=== PATIENT | male | born 1990 | race Two or more races ===

== ENCOUNTER 2025-05-23 00:29 | Emergency (ER) | payer OTHER ==
[~2025-05-23] VITALS: Ht 175.3 cm; Wt 74.8 kg
[2025-05-23 04:37] VITALS: BP 126/69; TEMP 98.2; O2SAT 98
== END 2025-05-23 04:37 | disposition home or self-care (01) ==
LOC: ER 00:51
DX: R20.0 Anesthesia of skin (principal)
CPT/HCPCS: 73090-TC; 73130-TC